=== PATIENT | female | born 1940 | race Caucasian/White ===

== ENCOUNTER 2020-03-08 09:51 | Day surgery (SDC) | payer OTHER, MEDICARE, SELFPAY ==
[2020-03-07 10:44] LABS: ANION GAP 6 (5-15); CALCIUM 8.8 mg/dL (8.4-11.0); CHLORIDE 102 mmol/L (98-107); CREATININE 0.95 mg/dL (0.55-1.30); GLUCOSE 108 mg/dL (70-99); SODIUM SERUM 135 mmol/L (136-145); UREA NITROGEN, BLOOD 16 mg/dL (8-21)
[2020-03-07 10:45] LABS: BASOPHILS % (AUTO) 0.6 % (0.0-2.0); EOSINOPHILS # (AUTO) 0.1 K/uL (0.0-0.4); EOSINOPHILS % (AUTO) 1.2 % (0.0-4.0); HEMATOCRIT 42.7 % (36-48); HEMOGLOBIN 14.2 g/dL (12.0-16.0); LYMPHOCYTES # (AUTO) 2.5 K/uL (1.0-5.5); LYMPHOCYTES % (AUTO) 33.8 % (20.5-51.5); MEAN CORPUSCULAR HEMOGLOBIN 31 pg (27-31); MEAN CORPUSCULAR HGB CONC 33 % (32-36); MEAN CORPUSCULAR VOLUME 94 fL (79.0-98.0); MONOCYTES # (AUTO) 0.4 K/uL (0.0-1.0); MONOCYTES % (AUTO) 6.1 % (1.7-9.3); NEUTROPHILS # (AUTO) 4.3 K/uL (1.8-7.7); NEUTROPHILS % (AUTO) 58.3 % (40.0-70.0); PLATELET COUNT (AUTO) 238 K/uL (130-430); RED BLOOD CELL COUNT(AUTO) 4.56 MIL/uL (4.2-6.2); RED CELL DISTRIBUTION WIDTH 13.9 % (9.0-15.0); WHITE BLOOD COUNT (AUTO) 7.3 K/uL (4.8-10.8)
[2020-03-07 10:48] LABS: PROTHROMBIN TIME 9.9 SECS (9.5-12.5)
[~2020-03-08] VITALS: Ht 162.6 cm; Wt 115.7 kg
[2020-03-08] MEDS ORDERED: POLYMYXIN 500,000/BACIT.10,000 UNITS in NS IRR 1 L IR ONE (13:19)
[2020-03-08] MEDS ORDERED: HYDROmorphone 2 MG/ML VIAL IVP PRN (13:30)
[2020-03-08] MEDS ORDERED: hydrALAZINE HCL 20 MG/ML VIAL IVP PRN (13:30)
[2020-03-08] MEDS ORDERED: LR 1,000 ML IV SCH (13:30)
[2020-03-08] MEDS ORDERED: HYDROmorphone 1 MG INJ. 1 MG/ML AMPUL IVP PRN (13:30)
[2020-03-08] MEDS ORDERED: LABETALOL 100 MG/ 20ML VIAL IVP PRN (13:30)
[2020-03-08] MEDS ORDERED: ROCURONIUM BROMIDE 10 MG/ML (ZEMURON) ONE (14:04)
[2020-03-08] MEDS ORDERED: fentaNYL CITRATE/PF 100 MCG/2 ML AMP ONE (14:04)
[2020-03-08] MEDS ORDERED: CEFAZOLIN 2 GM IVPB PREMIX 50 ML IV ONE (14:04)
[2020-03-08] MEDS ORDERED: DESFLURANE 15 MIN GAS INH ONE (14:04)
[2020-03-08] MEDS ORDERED: PROPOFOL 200MG/ 20ML VIAL (DIPRIVAN) IV ONE (14:04)
[2020-03-08] MEDS ORDERED: SUGAMMADEX SODIUM 200 MG/2 ML VIAL IV ONE (14:04)
[2020-03-08] MEDS ORDERED: BACITRACIN 1 GM OINT TP ONE (14:04)
[2020-03-08] MEDS ORDERED: BUPIVACAINE /EPINEPHRINE/PF 0.5% 30 ML VIAL INJ ONE (14:04)
[2020-03-08] MEDS ORDERED: KETOROLAC TROMETHAMINE 30 MG VIAL ONE (14:04)
[2020-03-08] MEDS ORDERED: DEXAMETHASONE SOD PHOSPHATE 4 MG/ML VIAL ONE (14:04)
[2020-03-08] MEDS ORDERED: MIDAZOLAM HCL 5 MG/ML VIAL (VERSED) IV ONE (14:04)
[2020-03-08] MEDS ORDERED: LR 1,000 ML IV.SOLN IV ONE (14:04)
[2020-03-08] MEDS ORDERED: ONDANSETRON HCL 4 MG/2 ML VIAL ONE (14:04)
[2020-03-08 15:44] VITALS: BP_SYST 128
--- NOTE | 2020-03-11 14:23 | NUR ---
Patient was called and notified about her "Not Detected" COVID-19 Laboratory Test Results and instructed to follow the preventive measures ([place] [facility]).
== END 2020-03-08 19:30 | disposition home or self-care (01) ==
LOC: SDS 09:51 → SMU 09:52 → SDS 19:30
PROVIDERS: ATTEND Neurological Surgery
DX: T85.735A Infection and inflammatory reaction due to cranial or spinal infusion catheter, initial encounter (principal); Z11.59 Encounter for screening for other viral diseases; I10 Essential (primary) hypertension; E03.9 Hypothyroidism, unspecified; F32.9 Major depressive disorder, single episode, unspecified; E66.01 Morbid (severe) obesity due to excess calories; G47.00 Insomnia, unspecified; Z85.41 Personal history of malignant neoplasm of cervix uteri; Y83.8 Other surgical procedures as the cause of abnormal reaction of the patient, or of later complication, without mention of misadventure at the time of the procedure; Z79.01 Long term (current) use of anticoagulants; Z79.899 Other long term (current) drug therapy
CPT/HCPCS: 36415; 62355; 62365; 71046; 76000; 80048; 85025; 85610; 85730; 87070 ×2; 87075; 93005; C9399; J0690; J1100; J1885; J2250; J2405; J2704; J3010; J3490; J7120; U0003